=== PATIENT | male | born 1940 | race Caucasian/White ===

== ENCOUNTER 2017-03-21 21:03 | Emergency (ER) | payer MEDICARE, BC ==
[~2017-03-21] VITALS: Ht 180.3 cm; Wt 81.6 kg
--- NOTE | 2017-03-21 21:16 | Emergency Room Report ---
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 and gets regular checkups Patient's also concerned about his blood pressure being low reports that he is usually 130 systolic Allergies: Coded Allergies: No Known Allergies (Unverified , 03/21/17) Patient History Past Medical History: see triage record Pertinent Family History: none Reviewed Nursing Documentation: PMH: Agreed, PSxH: Agreed Nursing Documentation-PMH Hx Cardiac Problems: Yes - BYPASS Hx Hypertension: Yes Review of Systems All Other Systems: negative except mentioned in HPI Physical Exam Vital Signs Date Time Temp Pulse Resp B/P Pulse Ox O2 Delivery O2 Flow Rate FiO2 03/21/17 20:59 97.0 63 16 104/55 97 03/21/17 21:04 Room Air Sp02 EP Interpretation: reviewed, normal General Appearance: well appearing, no apparent distress Head: normocephalic, atraumatic Eyes: bilateral eye EOMI, bilateral eye PERRL ENT: hearing grossly normal, normal pharynx, TMs + canals normal, uvula midline Neck: full range of motion, supple, no meningismus, no bony tend Respiratory: lungs clear, normal breath sounds, no rhonchi, no respiratory distress, no retraction, no accessory muscle use Cardiovascular #1: normal peripheral pulses, regular rate, rhythm, no edema, no gallop, no JVD, no murmur Gastrointestinal: normal bowel sounds, non tender, soft, no mass, no organomegaly, non-distended, no guarding, no hernia, no pulsatile mass, no rebound Genitourinary: no CVA tenderness Musculoskeletal: normal inspection Neurologic: oriented x3, responsive, licensed mental health counselor III-XII nml as tested, motor strength/ tone normal, sensory intact Psychiatric: mood/affect normal Skin: normal color, no rash, warm/dry, palpation normal Lymphatic: normal inspection, no adenopathy Medical Decision Making Diagnostic Impression: Primary Impression: ACS (acute coronary syndrome) Additional Impression: Syncope ER Course Patient is a fairly complex patient with multiple differential to consideration including but not limited to cardiac cardiopulmonary and vascular emergencies Intracranial pathology such as CVA also considered Patient's did present she reports an episode of what sounds to be likely syncopal episode with diaphoresis Patient has neurologically come back to baseline levels The initial workup reveals abnormal chest x-ray with elevated left hemidiaphragm Hemoglobin count is 13 Given the patient's symptoms I felt further workup such as MRI and further inpatient care is required however the patient is refusing admission is at bedside as well and they are refusing any further inpatient care and admission And leaving AGAINST MEDICAL ADVICE Labs Test 03/21/17 20:15 White Blood Count 5.6 K/UL (4.8-10.8) Red Blood Count 4.20 M/UL (4.70-6.10) Hemoglobin 13.2 G/DL (14.2-18.0) Hematocrit 40.4 % (42.0-52.0) Mean Corpuscular Volume 96 FL (80-99) Mean Corpuscular Hemoglobin 31.4 PG (27.0-31.0) Mean Corpuscular Hemoglobin Concent 32.6 G/DL (32.0-36.0) Red Cell Distribution Width 12.1 % (11.6-14.8) Platelet Count 126 K/UL (150-450) Mean Platelet Volume 9.5 FL (6.5-10.1) Neutrophils (%) (Auto) 39.5 % (45.0-75.0) Lymphocytes (%) (Auto) 51.3 % (20.0-45.0) Monocytes (%) (Auto) 5.0 % (1.0-10.0) Eosinophils (%) (Auto) 2.9 % (0.0-3.0) Basophils (%) (Auto) 1.3 % (0.0-2.0) Prothrombin Time 10.4 SEC (9.30-11.50) Prothromb Time International Ratio 1.0 (0.9-1.1) Activated Partial Thromboplast Time 23 SEC (23-33) Sodium Level 142 mEQ/L (135-145) Potassium Level 3.5 mEQ/L (3.4-4.9) Chloride Level 104 mEQ/L (98-107) Carbon Dioxide Level 25 mEQ/L (20-30) Anion Gap 13 (5-15) Blood Urea Nitrogen 18 mg/dL (7-23) Creatinine 1.2 mg/dL (0.7-1.2) Estimat Glomerular Filtration Rate mL/min (>60) Glucose Level 135 mg/dL (74-106) Calcium Level 9.3 mg/dL (8.6-10.2) Total Bilirubin 0.7 mg/dL (0.0-1.2) Aspartate Amino Transf (AST/SGOT) 18 U/L (5-40) Alanine Aminotransferase (ALT/SGPT) 15 U/L (3-41) Alkaline Phosphatase 47 U/L (40-129) Total Creatine Kinase 111 U/L (38-174) Creatine Kinase MB 3.7 ng/mL (< 6.7) Creatine Kinase MB Relative Index 3.3 Troponin I < 0.30 ng/mL (<=0.30) Pro-B-Type Natriuretic Peptide 72 pg/mL (0-450) Total Protein 5.5 g/dL (6.6-8.7) Albumin 3.6 g/dL (3.5-5.2) Globulin 1.9 g/dL Albumin/Globulin Ratio 1.8 (1.0-2.7) Lipase 30 U/L (< 60) Serum Alcohol 92 mg/dL EKG Diagnostic Results Rate: normal Rhythm: NSR ST Segments: no acute changes Rhythm Strip Diag. Results EP Interpretation: yes Rate: 63 Rhythm: NSR, no PVC's, no ectopy Chest X-Ray Diagnostic Results EP Interpretation: Yes Findings: no pneumothorax, other - Left hemidiaphragm is elevated mild atelectasis no acute bony abnormalities Number of Views: 1 Last Vital Signs Date Time Temp Pulse Resp B/P Pulse Ox O2 Delivery O2 Flow Rate FiO2 03/21/17 21:04 63 16 Room Air 03/21/17 20:59 97.0 104/55 97 Status: improved Disposition: AGAINST MEDICAL ADVICE Condition: Serious ZEFERINO MORALES D.O. March 21, 2017 21:16
[2017-03-21 21:51] LABS: BASOPHILS % (AUTO) 1.3 % (0.0-2.0); EOSINOPHILS % (AUTO) 2.9 % (0.0-3.0); LYMPHOCYTES % (AUTO) 51.3 % (20.0-45.0); MEAN CORPUSCULAR HEMOGLOBIN 31.4 PG (27.0-31.0); MEAN CORPUSCULAR HGB CONC 32.6 G/DL (32.0-36.0); MEAN CORPUSCULAR VOLUME 96 FL (80-99); MEAN PLATELET VOLUME 9.5 FL (6.5-10.1); NEUTROPHILS % (AUTO) 39.5 % (45.0-75.0); PLATELET COUNT 126 K/UL (150-450); RED CELL DISTRIBUTION WIDTH 12.1 % (11.6-14.8); WHITE BLOOD COUNT 5.6 K/UL (4.8-10.8)
[2017-03-21 21:56] LABS: TROPONIN I < 0.30 ng/mL (<=0.30)
[2017-03-21 22:00] LABS: ALANINE AMINOTRANSFERASE 15 U/L (3-41); ALBUMIN/GLOBULIN RATIO 1.8 (1.0-2.7); ALCOHOL 92 mg/dL; ANION GAP 13 (5-15); ASPARTATE AMINO TRANSFERASE 18 U/L (5-40); CALCIUM 9.3 mg/dL (8.6-10.2); CARBON DIOXIDE 25 mEQ/L (20-30); CHLORIDE 104 mEQ/L (98-107); CREATININE 1.2 mg/dL (0.7-1.2); HEMOLYSIS 8; LIPASE 30 U/L (< 60); POTASSIUM 3.5 mEQ/L (3.4-4.9); PROTHROMBIN TIME 10.4 SEC (9.30-11.50); SODIUM 142 mEQ/L (135-145); TOTAL PROTEIN 5.5 g/dL (6.6-8.7)
[2017-03-21 22:10] LABS: CKMB 3.7 ng/mL (< 6.7)
[2017-03-21 22:22] VITALS: BP 116/63
[2017-03-21 22:24] VITALS: BP 116/63
--- NOTE | 2017-03-22 10:21 | Diagnostic Imaging Report ---
Indication: Chest pain Technique: One view of the chest Comparison: none Findings: There is scarring or atelectasis at the left lateral lung base. The lungs and pleural spaces are otherwise clear. Heart size is upper limits of normal. Aorta is tortuous and ectatic Epigastric and gastroesophageal junction surgical clips are demonstrated. There is evidence of prior CABG. Impression: Left lateral basilar scarring and/or atelectasis Postsurgical changes as described This agrees with the preliminary interpretation provided by the emergency room physician
--- NOTE | 2017-03-23 19:50 | Cardiology Report ---
APPROVED REPORT EKG Measurement Heart [id number] Normal sinus rhythm Normal ECG
== END 2017-03-21 22:31 | disposition left against medical advice (07) ==
LOC: EDBD 21:03 → EMR 21:51 → CANBEDREQ 22:28 → EMR 22:31
DX: I24.9 Acute ischemic heart disease, unspecified (principal); R55 Syncope and collapse; I10 Essential (primary) hypertension; J98.11 Atelectasis
CPT/HCPCS: 36415; 71010; 80053; 82550; 82553; 83690; 83880; 84484; 85025; 85610; 85730; 93005; 96360; 99284; G0480; 80329